=== PATIENT | male | born 1945 | race Caucasian/White ===

== ENCOUNTER → 2024-05-22 12:51 | Outpatient (REF) | payer MEDICARE, BC, SELFPAY | LOC: RCS 12:51 | PROVIDERS: ATTENDING PHYSICIAN Internal Medicine Cardiovascular Disease; FAMILY PHYSICIAN Family Medicine | DX: R07.9 Chest pain, unspecified (principal); I35.0 Nonrheumatic aortic (valve) stenosis | CPT/HCPCS: 93017; 93306 ==

== ENCOUNTER → 2024-05-30 10:28 | Outpatient (REF) | payer MEDICARE, BC, SELFPAY ==
[2024-05-30 11:40] LABS: Blood Urea Nitrogen 14 mg/dl (9-20); Carbon Dioxide 34 mmol/L (22-30); Chloride 103 mmol/L (98-107); Glucose 86 mg/dl (70-99); Sodium 145 mmol/L (135-145); eGFR > 60.00
== END ==
LOC: REG 10:28
PROVIDERS: ATTENDING PHYSICIAN Internal Medicine Cardiovascular Disease; FAMILY PHYSICIAN Family Medicine
DX: R07.89 Other chest pain (principal)
CPT/HCPCS: 36415; 80048

== ENCOUNTER → 2024-06-03 10:57 | Outpatient (REF) | payer MEDICARE, BC, SELFPAY | LOC: DHCBC/DCA 10:57 | PROVIDERS: ATTENDING PHYSICIAN Internal Medicine Cardiovascular Disease; FAMILY PHYSICIAN Family Medicine | DX: R07.89 Other chest pain (principal) | CPT/HCPCS: 78452; 93017; A9500 ==

== ENCOUNTER → 2024-06-05 06:30 | Outpatient (REF) | payer MEDICARE, BC, SELFPAY | LOC: RAD 06:30 | PROVIDERS: ATTENDING PHYSICIAN Internal Medicine Cardiovascular Disease; FAMILY PHYSICIAN Family Medicine | DX: R22.1 Localized swelling, mass and lump, neck (principal) | CPT/HCPCS: 71275; 76536; Q9967 ==

== ENCOUNTER → 2024-06-25 06:29 | Outpatient (REF) | payer MEDICARE, BC, SELFPAY | LOC: RSP 06:29 | PROVIDERS: ATTENDING PHYSICIAN Internal Medicine Cardiovascular Disease; FAMILY PHYSICIAN Family Medicine | DX: R06.09 Other forms of dyspnea (principal) | CPT/HCPCS: 94727; 94729; 88738; 94010 ==

== ENCOUNTER 2024-07-15 09:31 | Day surgery (SDC) | payer MEDICARE, BC, SELFPAY ==
[2024-07-06 07:58] VITALS: BMI 25.2
--- NOTE | 2024-07-06 09:01 | HPS.HSE ---
Family Physician
-
Family Physician: NO INTERVIEW UNKNOWN
Chief Complaint
-
Dyspnea on exertion. Chest pain.
History of Present Illness
The patient is a 78 year old male presenting today for dyspnea on exertion and chest pain. His symptoms have been ongoing over the last year. His shortness of breath is noted most often with walking up and down his flight of stairs at
home. His chest pain is described as a generalized 'discomfort' with left arm soreness that is rated a 5/10 in severity. His symptoms are typically relieved with 5-10 minutes of rest. These symptoms are certainly concerning for typical angina. Given
this, he was advised to take baby Aspirin, Isosorbide, and Nitroglycerin as needed. He has been complaint with daily Aspirin. He, fortunately, has not required the use of his Nitroglycerin. Isosorbide was ultimately stopped due to chronic headache.
His other notable past medical history includes aortic stenosis and bilateral upper and lower lobe pulmonary emboli, which were treated with Eliquis in 2019. Recent symptom work-up included a chest CT, PFTs, echocardiogram, and exercise stress test.
Chest CT was negative for pulmonary embolism. PFTs demonstrated no evidence of an obstructive or restrictive lung defect. His echocardiogram revealed moderate aortic stenosis but no other significant abnormalities. His exercise stress test was
negative for ischemia. It is recommended he undergo a left and right cardiac catheterization at this time for further symptom evaluation. He denies any current complaints today such as chest pain or shortness of breath at rest, nausea, vomiting,
diarrhea, lightheadedness, dizziness, cough, sore throat, or fever.
Medical History
Past Medical History
Past Medical History: Reports Other
Additional Past Medical History:
1. Dyspnea on exertion.
2. Chest pain.
3. Hypertension.
4. Hyperlipidemia.
5. Moderate aortic stenosis per echo 04/2024.
6. Bilateral upper and lower lobe pulmonary emboli, 2019, treated with Eliquis.
7. GERD.
8. Diverticulosis.
9. Hemorrhoids, status post hemorrhoidectomy.
10. Lumbar degenerative disc disease with radiculopathy.
11. Chronic pain syndrome secondary to the above.
12. Hypothyroidism.
13. BPH.
14. Insomnia.
Past Surgical History: Reports Other
Additional Past Surgical History:
1. Right carpal tunnel release 2.
2. Left carpal tunnel release.
3. Sinus surgery.
4. Hemorrhoidectomy.
5. Colonoscopy x2.
6. Endoscopy x2.
Social History
Tobacco: Non-smoker
Alcohol: Other (Seldom. )
Personal:
Living: Other (He lives in a 2 story home with his . )
Family History
Family History: CAD (His father reportedly of a myocardial infarction at age 76. )
Allergies / Home Medications
Allergy/Medication List:
Home medications:
1. Aspirin 81 mg p.o. daily.
2. Atenolol 25 mg p.o. at bedtime.
3. Atorvastatin 20 mg p.o. at bedtime.
4. Famotidine 40 mg p.o. at bedtime.
5. Fiber 1 tablet p.o. daily.
6. Gabapentin 600 mg p.o. three times a day.
7. Levothyroxine 137 mcg p.o. daily.
8. Melatonin 10 mg p.o. at bedtime.
9. Multivitamin 1 tablet p.o. daily.
10. Nitroglycerin 0.4 mg sublingual every 5 minutes as needed (max of 3 doses).
11. Fish oil 2 capsules p.o. daily.
12. OxyContin 10 mg p.o. three times a day.
13. Saw palmetto 1 mg p.o. daily.
14. Tamsulosin 0.4 mg p.o. at bedtime.
Allergies: Biotene dry mouth.
Adverse drug reactions: Isosorbide (headache).
Review of Systems
-
A 12 point ROS was completed and negative except as noted: Yes
Physical Exam
Vital Signs
Blood pressure 118/78. Heart rate 72. Respirations 18. Pulse ox 100% on room air.
Height 5 feet, 10 inches. Weight 79.6 kg. BMI 25.2.
Physical Exam
General: Well Developed, Well Nourished and No Apparent Distress
HEENT: NormoCephalic, Moist mucous membranes, Atraumatic and PERRLA
Respiratory: Clear
Cardiac: Regular Rhythm
GI: Soft, Non Tender and Non Distended
Musculoskeletal: No Edema and Normal Gait & Station
Skin: Warm and Dry
Neuro: AO x 3 and Nonfocal/grossly intact
Laboratory Results
-
DIAGNOSTIC STUDIES as of 07/06/2024: White blood cell count 6.4. Hemoglobin 13.4. Platelet count 163,000. Sodium 139. Potassium 4.4. BUN 23. Creatinine 0.9. Glucose 99.Calcium 9.6. AST 23. ALT 18. Albumin 4.5.
EKG 07/06/2024: Normal sinus rhythm. ST elevation, consider early repolarization. In comparison to the EKG of 06/03/2024, no significant change was found. The patient is currently asymptomatic.
PFTs 06/25/2024: Normal PFT with no evidence of an obstructive or restrictive lung defect. Normal gas exchange capacity.
Echocardiogram 05/22/2024: Normal biventricular size and systolic function without regional wall motion abnormality. Moderate aortic stenosis. Compared to the prior echo on 03/21/2021, aortic stenosis has increased from mild to moderate.
Exercise stress test 05/22/2024: Nonspecific ECG changes that do not meet criteria for ischemia. Chest pain reported in recovery. Average exercise tolerance for given age and gender. Overall, moderate risk test.
Impression/Plan
-
IMPRESSION/PLAN:
1. Dyspnea on exertion and chest pain: The patient is in need of a left and right cardiac catheterization with Dr. Panda Vargas on 07/15/2024. The benefits and risks of the procedure have been explained to the patient. The patient understands these
risks and wishes to proceed. He is aware to continue his baby Aspirin daily, up to and including the morning of his procedure.
[2024-07-15] VITALS (12 sets, daily range): BP systolic 108–133; BP diastolic 66–74; BMI 25.6
[2024-07-15] MEDS: NSS 236 ML IV (10:48)
[2024-07-15] MEDS: OXYCONTIN (CONTROLLED RELEASE) 10 MG PO (13:02)
--- NOTE | 2024-07-15 14:50 | ITS.CL.CATH ---
[facility] - Catheterization
Cardiac Catheterization
Procedure Report:
CARDIAC CATHETERIZATION REPORT
Date of Procedure: 07/15/2024
Referring: Panda Vargas D.O.
Indication: Persistent chest pressure, shortness of breath on exertion, concern for false negative stress test.
PROCEDURE:
1. Right heart catheterization.
2. Coronary angiography.
3. Left heart catheterization
4. Aortic valve interrogation.
A total of 15 minutes of procedural/moderate sedation was utilized. An independent medical coder was present to assist with and help manage the patient's level of consciousness and physiologic status.
ACCESS:
1. 6 Indian right radial artery using a modified Seldinger technique under ultrasound guidance. Ultrasound image obtained.
2. 5 Indian right antecubital vein through a previously placed IV site.
CATHETERS:
1. 5 Indian balloon wedge.
2. 5 Indian JL 3.5.
3. 5 Indian JR4.
4. 6 Indian Shine dual-lumen pigtail.
HEMODYNAMIC DATA
Weight (kg): 79.4
AO (s/d/x mmHg): 109/60/77
LV (s/x mmHg): 144/6
PCWP (a/v/x mmHg): 10/6
PA (s/d/x mmHg): 18/8/11
RV (s/x mmHg): 18/4
RA (a/v/x mmHg): 11/27/
SVC SvO2 (%): 70.1
IVC SvO2 (%): Not obtained.
RA SvO2 (%): Not obtained.
RV SvO2 (%): Not obtained.
PA SvO2 (%): 68.4
SaO2 (%): 96.6
Hbg (g/dL): 13.1
ADITYA
CO (L/min): 4.63
CI (L/min/m2): 2.34
Thermodilution
CO (L/min): Not performed.
CI (L/min/m2): Not performed.
TPG (mmHg): 5
PVR ([place]ake Units): 1.1
SVR (dynes*seconds*cm^-5): 1261
AVO2 Diff (Volume %): 5.02
AV gradient (x, mmHg): 26.81
AV area (cm2): 0.89
MV gradient (x, mmHg): Not obtained
MV area (cm2): Not obtained
LEFT VENTRICULOGRAPHY: Not performed.
AORTOGRAPHY: Not performed.
CORONARY ANGIOGRAPHY
Dominance: Codominant.
Left Main: Large size, trifurcating vessel. There is no coronary artery disease.
LAD: Large size vessel giving rise to 2 diagonals before reaching the apex. There is no coronary artery disease.
Ramus: Medium size vessel supplying much of the lateral wall.
Circumflex: Large size, codominant vessel that gives rise to 1 obtuse marginal before terminating as a partial LPDA. There is no coronary artery disease. The distal aspect of the marginal and the partial LPDA are moderately tortuous.
RCA: Normal size, codominant vessel giving rise to a partial distal RPDA. There is no coronary artery disease.
INTERVENTIONS
None
Closure Device: Vascular band for the right radial artery, manual pressure for the right antecubital vein.
Radiation dose (mGy): 302.50
DAP (cm2.Gy): 22.3400
Fluoroscopy time (minutes): 3.7
CONCLUSIONS:
1. Codominant circulation with no coronary artery disease.
2. Normal filling pressures (LVEDP = 6 mmHg, PCWP = 6 mmHg at 79.4 kg).
3. Moderate aortic valve stenosis (mean aortic valve gradient = 26.81 mmHg, aortic valve area = 0.89 cm�, stroke-volume index = 39 mL/m�).
RECOMMENDATIONS:
1. Expectant management after cardiac catheterization via right radial/antecubital approach.
2. Limited weight bearing on the right wrist for one week.
3. Careful monitoring of aortic valve stenosis with at least yearly if not by yearly echocardiography to monitor for progression of valve disease.
4. Continue aggressive primary prevention with high-dose, high potency statin.
5. Risk factor modification with guideline directed medical therapy as hemodynamics will tolerate.
6. Increase physical activity for possible deconditioning.
7. If the patient continues to have symptoms in spite of increased physical activity and improved conditioning, we will consider the possibility of symptomatic aortic valve stenosis, particularly given the calculated valve areas.
Copy to: Panda Vargas D.O., John Paul Shah M.D.
Panda Vargas, , FACC, FACP
[2024-07-15] MEDS: NSS 1000 IV (15:08)
== END 2024-07-15 17:45 | disposition home or self-care (01) ==
LOC: CATH 09:31
PROVIDERS: ATTENDING PHYSICIAN Internal Medicine Cardiovascular Disease; FAMILY PHYSICIAN Family Medicine
DX: R06.02 Shortness of breath (principal); R07.89 Other chest pain; I35.0 Nonrheumatic aortic (valve) stenosis; I10 Essential (primary) hypertension; E78.5 Hyperlipidemia, unspecified; K21.9 Gastro-esophageal reflux disease without esophagitis; E03.9 Hypothyroidism, unspecified; M51.16 Intervertebral disc disorders with radiculopathy, lumbar region; R06.09 Other forms of dyspnea
CPT/HCPCS: 99152; 76937; 93458; 93460; C1769; C1894; Q9967

== ENCOUNTER → 2024-11-26 10:59 | Outpatient (REF) | payer MEDICARE, BC, SELFPAY | LOC: RAD 10:59 | PROVIDERS: ATTENDING PHYSICIAN Student in an Organized Health Care Education/Training Program | DX: Z86.711 Personal history of pulmonary embolism (principal); N40.0 Benign prostatic hyperplasia without lower urinary tract symptoms; K21.9 Gastro-esophageal reflux disease without esophagitis; I10 Essential (primary) hypertension; E78.2 Mixed hyperlipidemia; I70.90 Unspecified atherosclerosis; G89.29 Other chronic pain; M54.50 Low back pain, unspecified; I26.99 Other pulmonary embolism without acute cor pulmonale | CPT/HCPCS: 73564; 73590; 93971 ==

== ENCOUNTER → 2025-03-16 09:18 | Outpatient (REF) | payer MEDICARE, BC, SELFPAY | LOC: RAD 09:18 | PROVIDERS: ATTENDING PHYSICIAN Internal Medicine Cardiovascular Disease; FAMILY PHYSICIAN Family Medicine | DX: I35.0 Nonrheumatic aortic (valve) stenosis (principal) | CPT/HCPCS: 74174; 75572; Q9967 ==

== ENCOUNTER → 2025-04-06 06:33 | Outpatient (REF) | payer MEDICARE, BC, SELFPAY | LOC: RSP 06:33 | PROVIDERS: ATTENDING PHYSICIAN Internal Medicine Cardiovascular Disease; FAMILY PHYSICIAN Family Medicine | DX: R06.09 Other forms of dyspnea (principal) | CPT/HCPCS: 94010; 94727; 94729 ==

== ENCOUNTER → 2025-04-26 08:11 | Outpatient (REF) | payer MEDICARE, BC, SELFPAY | LOC: RCS 08:11 | PROVIDERS: ATTENDING PHYSICIAN Internal Medicine Cardiovascular Disease; FAMILY PHYSICIAN Family Medicine | DX: R06.09 Other forms of dyspnea (principal); I10 Essential (primary) hypertension; Z86.711 Personal history of pulmonary embolism; I35.0 Nonrheumatic aortic (valve) stenosis | CPT/HCPCS: 93306 ==